=== PATIENT | female | born 1990 | race Hispanic/Latino ===

== ENCOUNTER 2019-06-15 15:50 | Emergency (ER) | payer SELFPAY ==
[2019-06-15 16:08] VITALS: BP 135/88
--- NOTE | 2019-06-15 16:08 | Event Note ---
ED Screening Note Date of service: 06/15/19 Time: 16:07 ED Screening Note: This is a 29 y.o. F. that presents to the ER with bilateral eye pain and photophobia. Patient states she slept in contacts last night. This initial assessment/diagnostic orders/clinical plan/treatment(s) is/are subject to change based on patients health status, clinical progression and re- assessment by fellow clinical providers in the ED. Further treatment and workup at subsequent clinical providers discretion. Patient/guardian urged not to elope from the ED as their condition may be serious if not clinically assessed and managed. Initial orders include:
[2019-06-15] MEDS ORDERED: TETRACAINE 0.5% OPHTH SOLN 4ML OU ONE (18:35)
[2019-06-15] MEDS ORDERED: FLUORESCEIN 1 MG STRIP OP ONE ×2 (18:35→18:39)
[2019-06-15] MEDS ORDERED: TETRACAINE 0.5% OPHTH SOLN 4ML ONE (18:39)
--- NOTE | 2019-06-15 18:50 | Emergency Department Report ---
ED Eye Problem HPI - General Chief complaint: Eye Problems Stated complaint: SWOLLEN EYES/BLURR VISION Time Seen by Provider: 06/15/19 16:07 Source: patient Mode of arrival: Ambulatory Limitations: No Limitations - History of Present Illness Initial comments: Patient is a 29-year-old female who presents to emergency room with complaints of bilateral eye irritation that began this morning. She states that last night she accidentally fell asleep in her contacts in and had them in for approximately 24 hours. She states that when she woke up this morning her eyes were irritated and she her eyelids had swelling present. Patient states that she has a scratching sensation in her left eye. The patient states initially this morning she had blurry vision but improved. She states she has photophobia. She states she has taken the contacts out. She denies any past medical history or allergies medications. - Related Data Previous Rx's Medication Instructions Recorded Last Taken Type Erythromycin [Erythromycin Ophth 10 applic OP QID 7 Days #1 tube 06/15/19 Unknown Rx Oint] Ketotifen Fumarate [Eye Itch 2 drops OP TID PRN #1 drops 06/15/19 Unknown Rx Relief] Allergies Allergy/AdvReac Type Severity Reaction Status Date / Time No Known Allergies Allergy Verified 06/15/19 15:53 ED Review of Systems ROS: Stated complaint: SWOLLEN EYES/BLURR VISION Other details as noted in HPI Comment: All other systems reviewed and negative ED Past Medical Hx - Past Medical History Previous Medical History?: No - Surgical History Past Surgical History?: No - Social History Smoking Status: Unknown if ever smoked Substance Use Type: None - Medications Home Medications: Home Medications Medication Instructions Recorded Confirmed Last Taken Type Erythromycin [Erythromycin Ophth 10 applic OP QID 7 Days #1 tube 06/15/19 Unknown Rx Oint] Ketotifen Fumarate [Eye Itch 2 drops OP TID PRN #1 drops 06/15/19 Unknown Rx Relief] ED Physical Exam - General Limitations: No Limitations General appearance: alert, in no apparent distress - Head Head exam: Present: atraumatic, normocephalic - Eye Eye exam: Present: PERRL, EOMI, conjunctival injection (bilaterally, left greater than right), other (small amount of edema to the bilateral eyelids, raimrez lamp examination of the bilateral eyes: right eye is normal, left eye with 0.5 cm circular area of uptake ). Absent: scleral icterus, nystagmus, periorbital swelling, periorbital tenderness ED Course Vital Signs 06/15/19 16:07 Temperature 98.5 F Pulse Rate 73 Respiratory 18 Rate Blood Pressure 135/88 O2 Sat by Pulse 100 Oximetry ED Medical Decision Making - Medical Decision Making Patient is a 29-year-old female who presents to emergency room with complaints of bilateral eye irritation that began this morning. She states that last night she accidentally fell asleep in her contacts in and had them in for approxim ately 24 hours. She states that when she woke up this morning her eyes were irritated and she her eyelids had swelling present. Patient states that she has a scratching sensation in her left eye. The patient states initially this morning she had blurry vision but improved. She states she has photophobia. She states she has taken the contacts out. She denies any past medical history or allergies medications. VSS. on exam: bilateral conjunctival injection, left greater than right, small amount of edema to the bilateral eyelids, ramirez lamp examination of the bilateral eyes: right eye is normal, left eye with 0.5 cm circular area of uptake. examination appears consistent with corneal ulceration vs corneal abrasion. Patient given erythromycin ophthalmic ointment and Zaditor eyedrops. Advised patient to avoid rubbing the eyes, keep eyes well lubricated with artificial tears, do not wear contacts. discussed with pt to Please use medication as prescribed. Please follow-up with wood patternmaker apprentice in the next 2 days. It is very important that you follow up with an wood patternmaker apprentice to prevent blindness. Do not place your contacts back in until you have seen an wood patternmaker apprentice. Return to the emergency room for any new or worsening symptoms. - Differential Diagnosis corneal abrasion, corneal laceration, corneal ulceration, conjunctivitis Critical care attestation.: If time is entered above; I have spent that time in minutes in the direct care of this critically ill patient, excluding procedure time. ED Disposition Clinical Impression: Corneal ulcer Qualifiers: Laterality: left Qualified Code(s): H16.002 - Unspecified corneal ulcer, left eye Conjunctivitis Qualifiers: Conjunctivitis type: acute Acute conjunctivitis type: unspecified Laterality: bilateral Qualified Code(s): H10.33 - Unspecified acute conjunctivitis, bilateral Disposition: DC- TO HOME OR SELFCARE Is pt being admited?: No Does the pt Need Aspirin: No Condition: Stable Instructions: Conjunctivitis (ED), Corneal Ulcer (ED) Additional Instructions: Please use medication as prescribed. Please follow-up with wood patternmaker apprentice in the next 2 days. It is very important that you follow up with an wood patternmaker apprentice to prevent blindness. Do not place your contacts back in until you have seen an wood patternmaker apprentice. Return to the emergency room for any new or worsening symptoms. Prescriptions: Erythromycin [Erythromycin Ophth Oint] 10 applic OP QID 7 Days #1 tube Ketotifen Fumarate [Eye Itch Relief] 2 drops OP TID PRN #1 drops PRN Reason: eye relief Referrals: STARR GARCIA MD [Staff Physician] - 2-3 Days RADHA SMITH MD [Staff Physician] - 2-3 Days CATHIE SPENCER MD [Staff Physician] - 2-3 Days Forms: Work/School Release Form(ED) Time of Disposition: 18:51 Print Language: KOSOVAN
== END 2019-06-15 19:05 | disposition home or self-care (01) ==
LOC: ED 15:50
DX: H10.33 Unspecified acute conjunctivitis, bilateral (principal); H16.002 Unspecified corneal ulcer, left eye
CPT/HCPCS: 99283